=== PATIENT | female | born 1990 | race Caucasian/White ===

== ENCOUNTER 2023-01-30 10:30 | Emergency (ER) | payer OTHER ==
[~2023-01-30] VITALS: Ht 167.6 cm; Wt 59.0 kg
[2023-01-30] MEDS ORDERED: INSU3INS6 SQ (10:51)
[2023-01-30] MEDS ORDERED: INSU100C SQ (10:51)
[2023-01-30] MEDS ORDERED: AMLO-212 PO (10:51)
[2023-01-30] MEDS ORDERED: LABE100T5 PO (10:51)
[2023-01-30] MEDS ORDERED: HYDR100T27 PO (10:51)
[2023-01-30 11:31] LABS: BASOPHILS % (AUTO) 0.6 % (0.0-2.0); EOSINOPHILS # (AUTO) 0.1 K/uL (0.0-0.7); EOSINOPHILS % (AUTO) 2.2 % (0.0-7.0); HEMATOCRIT 23.7 % (31.2-41.9); HEMOGLOBIN 7.8 g/dL (10.9-14.3); LYMPHOCYTES # (AUTO) 0.6 K/uL (0.8-4.8); LYMPHOCYTES % (AUTO) 15.5 % (20.5-51.5); MEAN CORPUSCULAR HEMOGLOBIN 30.6 uug (24.7-32.8); MEAN CORPUSCULAR HGB CONC 33 g/dL (32.3-35.6); MEAN CORPUSCULAR VOLUME 92.4 fL (75.5-95.3); MONOCYTES # (AUTO) 1.4 K/uL (0.1-1.30); MONOCYTES % (AUTO) 34.5 % (0.0-11.0); NEUTROPHILS # (AUTO) 1.8 K/uL (1.8-8.9); NEUTROPHILS % (AUTO) 47.2 % (38.5-71.5); PLATELET COUNT (AUTO) 301 K/uL (179-408); RED BLOOD CELL COUNT(AUTO) 2.56 MIL/uL (3.63-4.92); RED CELL DISTRIBUTION WIDTH 16.3 % (12.3-17.7); WHITE BLOOD COUNT (AUTO) 3.9 K/uL (3.8-11.8)
[2023-01-30 11:44] LABS: CALCIUM 9.3 mg/dL (8.5-10.1); CREATININE 7.4 mg/dL (0.6-1.3); POTASSIUM 5.2 mmol/L (3.5-5.1)
[2023-01-30] MEDS ORDERED: hydrALAZINE HCL 20 MG/1 ML VIAL ONE (11:44)
[2023-01-30] MEDS ORDERED: hydrALAZINE HCL 20 MG/1 ML VIAL IV ONE (11:45)
[2023-01-30 11:48] VITALS: BP 201/120
[2023-01-30 11:48] LABS: DIFFERENTIAL COMMENT 1
[2023-01-30 12:08] LABS: ALBUMIN 3.6 g/dL (3.4-5.0); BILIRUBIN,DIRECT 0.2 mg/dL (0.0-0.2); BILIRUBIN,TOTAL 0.8 mg/dL (0.2-1.0); TOTAL PROTEIN, SERUM 7.8 g/dL (6.4-8.2)
[2023-01-30 13:15] VITALS: O2SAT 99
[2023-01-30 15:00] LABS: EOSINOPHILS % (MANUAL) 3 % (0-8); LYMPHOCYTES % (MANUAL) 17 % (20-40); MONOCYTES % (MANUAL) 35 % (2-10); NEUTROPHILS % (MANUAL) 45 % (42-75)
[2023-01-30 15:01] LABS: ANISOCYTOSIS 1+; HYPOCHROMASIA 1+; PLATELET ESTIMATE ADEQUATE
== END 2023-01-30 13:39 | disposition home or self-care (01) ==
LOC: ER 10:31
DX: E10.649 Type 1 diabetes mellitus with hypoglycemia without coma (principal); I12.0 Hypertensive chronic kidney disease with stage 5 chronic kidney disease or end stage renal disease; E10.22 Type 1 diabetes mellitus with diabetic chronic kidney disease; N18.6 End stage renal disease; Z99.2 Dependence on renal dialysis; R41.82 Altered mental status, unspecified; Z79.4 Long term (current) use of insulin; Z79.899 Other long term (current) drug therapy
CPT/HCPCS: 99285; 96374; 71045; 80076; 80048; 85025; 36415; 93005; 82962 ×3; 85007; J0360; J7040; 70030-TC; A4606; A4663